=== PATIENT | female | born 1955 | race Caucasian/White ===

== ENCOUNTER 2019-11-30 06:38 | Day surgery (SDC) | payer MEDICAID ==
[~2019-11-30] VITALS: Ht 167.6 cm; Wt 108.9 kg
[2019-11-30] MEDS ORDERED: IOHEXOL-350 100 ML VIAL IV ONE (07:16)
[2019-11-30] MEDS ORDERED: NITROGLYCERIN 0.4 MG/TAB BOTTLE ONE (07:30)
[2019-11-30] MEDS ORDERED: NITROGLYCERIN 0.4 MG/TAB BOTTLE SL ONE (07:30)
[2019-11-30] MEDS ORDERED: METOPROLOL TARTRATE INJ 5 MG/5 ML AMPUL ONE ×2 (07:31→08:31)
[2019-11-30] MEDS: METOPROLOL TARTRATE INJ 5 MG/5 ML AMPUL IVP PRN ×6 (07:35→08:41)
--- NOTE | 2019-11-30 08:00 | NUR ---
RN NOTES: CTA procedure: Patient received from [facility], via gurney, patient is awake and verbally responsive. Denies any pain or discomfort at this time. CTA procedure explained to patient and verbalizes understanding, patient signed consent. IV g18 inserted at left AC.
--- NOTE | 2019-11-30 08:02 | NUR ---
RN NOTES: POST CTA procedure: Patient able to tolerate procedure, vital signs remains stable. Denies pain or discomfort at this time.
[2019-11-30 08:41] VITALS: BP 133/76
--- NOTE | 2019-11-30 09:01 | NUR ---
RN NOTES: Patient transferred back to [facility] transported by ambulance in stable condition.
== END 2019-11-30 08:54 | disposition home or self-care (01) ==
LOC: CT 06:38
PROVIDERS: ATTEND Internal Medicine Interventional Cardiology
DX: I50.9 Heart failure, unspecified (principal); I25.10 Atherosclerotic heart disease of native coronary artery without angina pectoris; J90 Pleural effusion, not elsewhere classified; J98.11 Atelectasis; M47.814 Spondylosis without myelopathy or radiculopathy, thoracic region
CPT/HCPCS: 75574; J3490 ×2; Q9967

== ENCOUNTER 2019-12-02 06:13 | Day surgery (SDC) | payer MEDICAID ==
[2019-12-02] VITALS (7 sets, daily range): BP systolic 133–154; BP diastolic 51–92
[~2019-12-02] VITALS: Ht 167.6 cm; Wt 99.8 kg
[2019-12-02] MEDS ORDERED: IV NS 0.9% 500 ML IV ONE (06:27)
[2019-12-02] MEDS ORDERED: IV SET PRIMARY PUMP SET 1 EA INFUS.SET MC ONE (06:28)
[2019-12-02] MEDS ORDERED: HEPARIN SODIUM, PORCINE 1,000 UNIT/ML VIAL ONE ×2 (06:28→07:23)
[2019-12-02] MEDS ORDERED: VERAPAMIL HCL IV 5 MG/2 ML VIAL ONE (06:28)
[2019-12-02] MEDS ORDERED: IODIXANOL 150 ML IV ONE (06:28)
[2019-12-02] MEDS ORDERED: LIDOCAINE HCL/PF 1% 30 ML SDV ONE (06:28)
[2019-12-02] MEDS ORDERED: NITROGLYCERIN ICAR 1,000 MCG/10 ML VIAL ICAR ONE (06:29)
[2019-12-02] MEDS ORDERED: FENTANYL PF 100MCG/2ML AMPUL ONE (07:15)
[2019-12-02] MEDS ORDERED: MIDAZOLAM HCL 2 MG/2ML VIAL ONE (07:15)
[2019-12-02] MEDS ORDERED: IODIXANOL 320MG/ML 0 ML IV ONE (07:50)
--- NOTE | 2019-12-02 08:33 | NUR ---
RN NOTES RECEIVED PATIENT VIA GURNEY, PATIENT ALERT AND ORIENTEDX4, ABLLE TO MAKE NEEDS KNOWN. ON ROOM AIR, BREATHING UNLABORED. ATTACHED TO THE MONITOR, HR ON THE 70s SINUS RHYTHM ON THE MONITOR. NO COMPLAINTS OF PAIN AT THIS TIME, PATIENT IS ASKING FOR FOOD AND WATER. IV ACCESS ON THE THE LEFT AC, SL. TR BAND ON THE R FOREARM. PATIENT ORIENTED TO UNIT AND CALL LIGHT. SAFETY MEASURES PUT IN PLACE. CALL LIGHT WITHIN REACH. WILL CONTINUE TO MONITOR PATIENT ACCORDINGLY
[2019-12-02] MEDS ORDERED: MORP2VIA IV (10:05)
[2019-12-02] MEDS ORDERED: INSU100V3 SQ (10:05)
[2019-12-02] MEDS ORDERED: LOSA25TA27 PO (10:05)
[2019-12-02] MEDS ORDERED: HYDR-4076 PO (10:05)
[2019-12-02] MEDS ORDERED: ATOR40TA PO (10:05)
[2019-12-02] MEDS ORDERED: FURO10VI IVP (10:05)
[2019-12-02] MEDS ORDERED: ACET-868 PO (10:05)
[2019-12-02] MEDS ORDERED: CARV12.52 PO (10:05)
[2019-12-02] MEDS ORDERED: ASPI-1169 PO (10:05)
[2019-12-02] MEDS ORDERED: BLOO-668 IN (10:05)
[2019-12-02] MEDS ORDERED: DOCU-270 PO (10:05)
[2019-12-02] MEDS ORDERED: ONDA4VIA52 IV (10:05)
[2019-12-02] MEDS ORDERED: ENOX40DI SQ (10:05)
[2019-12-02] MEDS ORDERED: MAGN400O6 PO (10:05)
[2019-12-02] MEDS ORDERED: SPIR25TA6 PO (10:05)
[2019-12-02] MEDS ORDERED: TEMA15CA5 PO (10:05)
[2019-12-02] MEDS ORDERED: PANT40VI IV (10:05)
[2019-12-02] MEDS ORDERED: DEXT50DI5 IV (10:06)
--- NOTE | 2019-12-02 12:00 | NUR ---
ICU/RN PT TRANSFERRED TO [facility]IT IN STABLE CONDITION.V/S STABLE ,AFEBRILE,NO PAIN REPORTED AT THIS TIME.PT EATS 100% FRO HER LUNCH TRAY.TR BAND STILL ON THE RIGHT WRIST AIR REMOVED NO S/S OF BLEEDING NOTED.REPORT GIVEN TO DONALDO.
--- NOTE | 2019-12-02 12:38 | NUR ---
[facility] RN NOTE RECEIVED PATIENT FROM ICU L ALERT ORIENTED X4 ON RA NO SOB NOTED AT THIS TIME , ON TELE MONITOR ORDERED M SR WITH PVC HR 65 , RT WRIST WITH TR BAND ICU NURSE DEFATTED BALLOON , NO BLEEDING NOTED AT THIS TIME BED IN LOCKED AND LOWEST POSITION , PLAN OF CARE DISCUSSED WITH PATIENT
[2019-12-02] MEDS ORDERED: INSULIN REGULAR, HUMAN 100 UNIT/ML 3 ML VIAL SQ PRN (13:00)
[2019-12-02] MEDS ORDERED: *INSULIN REGULAR(HUMULIN R)HUM 100 UNIT/ML VIAL SQ PRN (13:00)
[2019-12-02] MEDS ORDERED: DEXTROSE 50%-WATER 50 ML DISP.SYRIN IV PRN (13:00)
--- NOTE | 2019-12-02 14:25 | NUR ---
[facility] RN notes Patient in bed, not in acute distress. TR band removed and applied pressure dressing. No bleeding noted at this time. Will cont to monitor
--- NOTE | 2019-12-02 15:43 | NUR ---
reinsurance claims analyst notes Report given to LAZARO Hampton at [facility]. Patient made aware that ambulance will be picking her up at [phone] [facility]
[2019-12-02] MEDS ORDERED: BLOOD SUGAR DIAGNOSTIC 1 EACH STRIP VI SCH (17:30)
--- NOTE | 2019-12-02 18:20 | NUR ---
marine underwriter notes Patient in bed, not in acute distress. Ate 75% of her dinner. No s/s of hypo/hyperglycemia noted. Denies any pain or discomfort. All needs attended. VS stable. Will endorse to warehouse worker 2nd shift
--- NOTE | 2019-12-02 19:05 | NUR ---
TELE/RN OPENING NOTES: RECEIVED PT. A/OX3. IN STABLE CONDITION. VERBALLY RESPONSIVE AND ABLE TO MAKE NEEDS KNOWN. NO SOB NOTED. NO S/S OF DISTRESS, ON ROOM AIR AND SATURATING WELL. SKIN INTACT. TR BAND REMOVED. TAGIDERM DRESSING IN PLACE. NO S/S OF BLEEDING. DENIES PAIN AT THIS TIME. IV SITE PRESENT ON THE LEFT AC #20G. ALL REPORTS GIVEN TO LAZARO WOODRUFF FROM [facility]. AWAITING FOR DISCHARGE AND AMBULANCE TO ARRIVE. CALL LIGHT WITHIN REACH. WILL CONTINUE TO MONITOR ACCORDINGLY.
--- NOTE | 2019-12-02 20:30 | NUR ---
TELE/PROFESSOR OF [employer] NOTES: AMBULNZ ARRIVED. ALL CONSENTS SIGNED. REPORT GIVEN TO RANJAN WILLIS AT [facility]. PT. IS STABLE, NO SOB NOTED. NO S/S OF DISTRESS. ON ROOM AIR. SATURATING 94%. VS STABLE. WITH IV LINE LEFT AC #20G INTACT AND IN PLACE SINCE PT IS GOING TO [facility]. PT LEFT THE UNIT AT 2030 IN STABLE CONDITION VIA GURNEY.
--- NOTE | 2019-12-03 09:22 | NUR ---
INFORMATION SENT:FACESHEET,SURGERY POST OPERATIVE,24 HOURS REPORT,DC PLANNING. [phone] FAX SENT BY DAQUAN
== END 2019-12-02 21:45 | disposition short-term general hospital (02) ==
LOC: CATHLAB 06:13 → UNDOADMIN 09:16 → ICU 09:16 → TELE1 11:56 → TELE-TD 12:12 → TELE1 15:41 → CATHLAB 21:45 → UNDODISIN 21:45
PROVIDERS: ATTEND Internal Medicine Interventional Cardiology
DX: R07.9 Chest pain, unspecified (principal); I42.9 Cardiomyopathy, unspecified; I50.21 Acute systolic (congestive) heart failure; I25.10 Atherosclerotic heart disease of native coronary artery without angina pectoris
CPT/HCPCS: 82962 ×2; 93458; 93463; 99152; C1887; J1644 ×3; J1815 ×2; J2250; J3010; J3490 ×2; J7040; Q9967; G0378; G0500

== ENCOUNTER 2023-10-03 14:14 | Inpatient (IN) | payer MEDICAID, OTHER ==
[~2023-10-03] VITALS: Ht 170.2 cm; Wt 124.7 kg
[~2023-10-03 14:14] MED LIST: ACET-868 PO; ASPI-1169 PO; ATOR40TA PO; BLOO-668 IN; CARV12.52 PO; DEXT50DI5 IV; DOCU-270 PO; ENOX40DI SQ; FURO10VI IVP; HYDR-4076 PO; INSU100V3 SQ; LOSA25TA27 PO; MAGN400O6 PO; MORP2VIA IV; ONDA4VIA52 IV; PANT40VI IV; SPIR25TA6 PO; TEMA15CA5 PO
[2023-10-03 15:21] LABS: BASOPHILS # (AUTO) 0.1 K/uL (0.0-0.2); EOSINOPHILS # (AUTO) 0.2 K/uL (0.0-0.7); EOSINOPHILS % (AUTO) 1.5 % (0.0-6.0); HEMATOCRIT 46 % (33-45); HEMOGLOBIN 15.2 g/dL (11.5-14.8); LYMPHOCYTES # (AUTO) 2.7 K/uL (0.8-4.8); LYMPHOCYTES % (AUTO) 27.2 % (20.0-44.0); MEAN CORPUSCULAR HEMOGLOBIN 30 PG (26.0-33.0); MEAN CORPUSCULAR HGB CONC 33 g/dl (31.0-36.0); MEAN CORPUSCULAR VOLUME 89 fL (82-100); MONOCYTES # (AUTO) 0.6 K/uL (0.1-1.30); MONOCYTES % (AUTO) 5.7 % (2.0-12.0); NEUTROPHILS # (AUTO) 6.5 K/uL (1.8-8.9); NEUTROPHILS % (AUTO) 64.6 % (43.0-81.0); PLATELET COUNT (AUTO) 222 K/uL (150-450); RED BLOOD CELL COUNT(AUTO) 5.15 MIL/uL (4.0-5.2); RED CELL DISTRIBUTION WIDTH 15.1 % (11.5-15.0)
[2023-10-03 15:41] LABS: CALCIUM, SERUM 9.5 mg/dL (8.5-10.1); CARBON DIOXIDE 23 mmol/L (21-32); CHLORIDE 103 mmol/L (98-107); GLUCOSE 149 mg/dL (74-106); SODIUM SERUM 139 mmol/L (136-145); UREA NITROGEN, BLOOD 27 mg/dL (7-18)
[2023-10-03 15:53] LABS: NT-PRO BNP 1883 pg/mL (0-125)
[2023-10-03] MEDS ORDERED: ASPI-1420 PO (16:05)
[2023-10-03] MEDS ORDERED: FURO-144 PO (16:05)
[2023-10-03] MEDS ORDERED: ENOXAPARIN SODIUM 60 MG/0.6 ML DISP.SYRIN SQ ONE (16:13)
[2023-10-03] MEDS: ENOXAPARIN SODIUM 60 MG/0.6 ML DISP.SYRIN SQ ONE (16:14)
[2023-10-03] MEDS ORDERED: ACETAMINOPHEN 325 MG TABLET PO PRN (19:00)
[2023-10-03] MEDS ORDERED: hydrALAZINE HCL IV 20 MG VIAL IV PRN (19:00)
[2023-10-03 20:30] VITALS: BP 138/97; TEMP 97.5; O2SAT 93
[2023-10-03 21:00] VITALS: BP 138/97; TEMP 97.5; O2SAT 93
[2023-10-03] MEDS: ATORVASTATIN 40 MG TABLET PO SCH (21:06)
[2023-10-04] VITALS: BP 127/79; TEMP 97.8; O2SAT 97
[2023-10-04 04:00] VITALS: BP 129/78; TEMP 97.5; O2SAT 97
[2023-10-04 04:52] VITALS: BP 129/78; TEMP 97.5; O2SAT 97
[2023-10-04 06:51] LABS: BASOPHILS % (AUTO) 0.4 % (0.0-2.0); EOSINOPHILS # (AUTO) 0.1 K/uL (0.0-0.7); HEMATOCRIT 45 % (33-45); HEMOGLOBIN 14.9 g/dL (11.5-14.8); LYMPHOCYTES # (AUTO) 2.1 K/uL (0.8-4.8); LYMPHOCYTES % (AUTO) 31.4 % (20.0-44.0); MEAN CORPUSCULAR HEMOGLOBIN 30 PG (26.0-33.0); MEAN CORPUSCULAR HGB CONC 34 g/dl (31.0-36.0); MEAN CORPUSCULAR VOLUME 88 fL (82-100); MONOCYTES # (AUTO) 0.6 K/uL (0.1-1.30); MONOCYTES % (AUTO) 8.3 % (2.0-12.0); NEUTROPHILS % (AUTO) 57.9 % (43.0-81.0); PLATELET COUNT (AUTO) 217 K/uL (150-450); RED BLOOD CELL COUNT(AUTO) 5.05 MIL/uL (4.0-5.2); RED CELL DISTRIBUTION WIDTH 15.3 % (11.5-15.0); WHITE BLOOD COUNT (AUTO) 6.8 K/uL (4.3-11.0)
[2023-10-04 07:48] LABS: ALBUMIN 3.2 g/dL (3.4-5.0); BILIRUBIN,TOTAL 0.6 mg/dL (0.2-1.0); CALCIUM, SERUM 8.8 mg/dL (8.5-10.1); CREATININE 0.9 mg/dL (0.6-1.3); PHOSPHORUS 3.6 mg/dL (2.5-4.9); POTASSIUM 4.2 mmol/L (3.5-5.1); TOTAL PROTEIN, SERUM 7.1 g/dL (6.4-8.2)
[2023-10-04 08:00] VITALS: BP 117/86; TEMP 98.4; O2SAT 99
[2023-10-04] MEDS: ASPIRIN EC 81 MG TABLET.DR PO SCH (08:21)
[2023-10-04] MEDS: LOSARTAN POTASSIUM 25 MG TABLET PO SCH (08:21)
[2023-10-04] MEDS: SPIRONOLACTONE 25 MG TABLET PO SCH (08:21)
[2023-10-04] MEDS: FUROSEMIDE 40 MG TABLET PO SCH (08:21)
[2023-10-04] MEDS: CARVEDILOL 12.5 MG TABLET PO SCH (08:22)
[2023-10-04] MEDS: HEPARIN SODIUM, PORCINE 5000 UNITS/1 ML VIAL SQ SCH (08:23)
[2023-10-04 10:44] LABS: THYROID STIMULATING HORMONE 0.994 uIU/mL (0.358-3.74)
[2023-10-04 16:00] VITALS: BP 118/78; TEMP 98.8; O2SAT 98
[2023-10-04 20:00] VITALS: BP 113/66; TEMP 97.7; O2SAT 92
[2023-10-05] VITALS: BP 113/67; TEMP 97.7; O2SAT 97
[2023-10-05 05:00] VITALS: BP 105/61; TEMP 97.8; O2SAT 98
[2023-10-05 08:00] VITALS: BP 125/85; TEMP 97.7; O2SAT 93
[2023-10-05] MEDS: BLOOD SUGAR DIAGNOSTIC 1 EACH STRIP IN SCH (08:30)
[2023-10-05] MEDS ORDERED: DEXTROSE 50%-WATER 50 ML DISP.SYRIN IV PRN (08:30)
[2023-10-05] MEDS: VALSARTAN 80 MG TABLET PO SCH (09:00)
[2023-10-05] MEDS ORDERED: CT SWABBABLE VALVE TRANS SET 1 EA INFUS.SET MC ONE (10:24)
[2023-10-05] MEDS ORDERED: IOHEXOL-350 100 ML VIAL IV ONE (10:24)
[2023-10-05] MEDS ORDERED: NITROGLYCERIN 0.4 MG/TAB BOTTLE ONE (10:24)
[2023-10-05] MEDS ORDERED: METOPROLOL TARTRATE INJ 5 MG/5 ML AMPUL ONE (10:24)
[2023-10-05] MEDS ORDERED: IV NS 0.9% 250 ML IV ONE (10:24)
[2023-10-05] MEDS: METOPROLOL TARTRATE INJ 5 MG/5 ML AMPUL IVP PRN (10:30)
[2023-10-05] MEDS: NITROGLYCERIN 0.4 MG/TAB BOTTLE SL ONE (10:40)
[2023-10-05] MEDS: INSULIN REGULAR, HUMAN 100 UNIT/ML 3 ML VIAL SQ PRN (11:34)
[2023-10-05 12:00] VITALS: BP 121/82; TEMP 98.1; O2SAT 97
[2023-10-05 16:00] VITALS: BP 115/58; TEMP 98.4; O2SAT 98
[2023-10-05 20:00] VITALS: BP 128/74; TEMP 98.6; O2SAT 94
[2023-10-06] VITALS (7 sets, daily range): BP systolic 114–141; BP diastolic 71–95; TEMP 97.5–98.5; O2SAT 93–97
[2023-10-06 06:27] LABS: BASOPHILS % (AUTO) 0.6 % (0.0-2.0); EOSINOPHILS # (AUTO) 0.2 K/uL (0.0-0.7); EOSINOPHILS % (AUTO) 2.5 % (0.0-6.0); HEMATOCRIT 44 % (33-45); HEMOGLOBIN 14.8 g/dL (11.5-14.8); LYMPHOCYTES # (AUTO) 2.4 K/uL (0.8-4.8); LYMPHOCYTES % (AUTO) 36.2 % (20.0-44.0); MEAN CORPUSCULAR HEMOGLOBIN 30 PG (26.0-33.0); MEAN CORPUSCULAR HGB CONC 34 g/dl (31.0-36.0); MEAN CORPUSCULAR VOLUME 89 fL (82-100); MONOCYTES # (AUTO) 0.5 K/uL (0.1-1.30); MONOCYTES % (AUTO) 7.7 % (2.0-12.0); NEUTROPHILS # (AUTO) 3.4 K/uL (1.8-8.9); PLATELET COUNT (AUTO) 210 K/uL (150-450); RED BLOOD CELL COUNT(AUTO) 4.98 MIL/uL (4.0-5.2); RED CELL DISTRIBUTION WIDTH 15.1 % (11.5-15.0); WHITE BLOOD COUNT (AUTO) 6.5 K/uL (4.3-11.0)
[2023-10-06 06:43] LABS: CALCIUM, SERUM 9.2 mg/dL (8.5-10.1); CREATININE 1.1 mg/dL (0.6-1.3); MAGNESIUM 1.9 mg/dL (1.8-2.4); PHOSPHORUS 3.6 mg/dL (2.5-4.9); POTASSIUM 4.2 mmol/L (3.5-5.1)
[2023-10-06] MEDS: SPIRONOLACTONE 25 MG TABLET PO SCH (09:11)
[2023-10-07] VITALS (8 sets, daily range): BP systolic 114–142; BP diastolic 75–88; TEMP 97.5–97.8; O2SAT 93–96
[2023-10-08] VITALS (11 sets, daily range): BP systolic 104–142; BP diastolic 64–101; TEMP 96.4–99; O2SAT 94–97
[2023-10-08] MEDS ORDERED: ANESTHESIA TRAY IN PYXIS 1 EA TRAY MC ONE (06:49)
[2023-10-08] MEDS ORDERED: IOHEXOL 0 ML IV ONE (06:49)
[2023-10-08] MEDS ORDERED: LIDOCAINE HCL/MPF 1% 30 ML VIAL IJ ONE (06:49)
[2023-10-08] MEDS ORDERED: FENTANYL PF 250MCG/5ML AMPUL ONE (07:20)
[2023-10-08 07:31] LABS: INR 0.97 (0.91-1.10); PARTIAL THROMBOPLASTIN TIME 30.7 SEC (24.3-34.3); PROTHROMBIN TIME 10.3 SECS (9.2-11.1)
[2023-10-08 07:34] LABS: BASOPHILS # (AUTO) 0.1 K/uL (0.0-0.2); BASOPHILS % (AUTO) 0.6 % (0.0-2.0); EOSINOPHILS # (AUTO) 0.2 K/uL (0.0-0.7); EOSINOPHILS % (AUTO) 2.4 % (0.0-6.0); HEMATOCRIT 48 % (33-45); HEMOGLOBIN 16.4 g/dL (11.5-14.8); LYMPHOCYTES # (AUTO) 2.9 K/uL (0.8-4.8); LYMPHOCYTES % (AUTO) 35.5 % (20.0-44.0); MEAN CORPUSCULAR HEMOGLOBIN 30 PG (26.0-33.0); MEAN CORPUSCULAR HGB CONC 34 g/dl (31.0-36.0); MEAN CORPUSCULAR VOLUME 88 fL (82-100); MONOCYTES # (AUTO) 0.6 K/uL (0.1-1.30); MONOCYTES % (AUTO) 7.5 % (2.0-12.0); NEUTROPHILS # (AUTO) 4.4 K/uL (1.8-8.9); PLATELET COUNT (AUTO) 235 K/uL (150-450); RED BLOOD CELL COUNT(AUTO) 5.48 MIL/uL (4.0-5.2); RED CELL DISTRIBUTION WIDTH 15.2 % (11.5-15.0); WHITE BLOOD COUNT (AUTO) 8.2 K/uL (4.3-11.0)
[2023-10-08 07:35] LABS: CALCIUM, SERUM 9.5 mg/dL (8.5-10.1); CREATININE 1.1 mg/dL (0.6-1.3)
[2023-10-08] MEDS ORDERED: FENTANYL PF 100MCG/2ML AMPUL ONE (09:07)
[2023-10-08] MEDS: MORPHINE SULFATE INJ 2 MG/ML DISP.SYRIN IV PRN (11:28)
[2023-10-08] MEDS: ONDANSETRON HCL/PF 4 MG/2 ML VIAL IVP PRN (18:52)
[2023-10-08] MEDS ORDERED: MAG HYDROX/AL HYDROX/SIMETH 30 ML UDC PO PRN (19:00)
[2023-10-09 07:30] VITALS: BP 132/98; TEMP 97.3; O2SAT 97
[2023-10-09 08:29] VITALS: BP 132/98
== END 2023-10-09 16:49 | disposition home or self-care (01) | DRG 276 ==
LOC: ER 14:14 → TELE 19:43 → MED 10-08 11:20
PROVIDERS: ADMIT Internal Medicine; ATTEND Internal Medicine
PROC: 0JH608Z Insertion of Defibrillator Generator into Chest Subcutaneous Tissue and Fascia, Open Approach (ICD-10-PCS; principal; 2023-10-08)
PROC: 02HK3KZ Insertion of Defibrillator Lead into Right Ventricle, Percutaneous Approach (ICD-10-PCS; 2023-10-08)
DX: I11.0 Hypertensive heart disease with heart failure (principal); I21.4 Non-ST elevation (NSTEMI) myocardial infarction; I50.43 Acute on chronic combined systolic (congestive) and diastolic (congestive) heart failure; Z68.41 Body mass index [BMI] 40.0-44.9, adult; I42.0 Dilated cardiomyopathy; I25.10 Atherosclerotic heart disease of native coronary artery without angina pectoris; E66.9 Obesity, unspecified; E78.5 Hyperlipidemia, unspecified; Z71.3 Dietary counseling and surveillance; Z88.1 Allergy status to other antibiotic agents; R73.9 Hyperglycemia, unspecified
CPT/HCPCS: 36415; 71045-TC; 74018; 75574; 80048-TC; 80053-TC; 80061-TC; 82962-TC; 83605-TC; 83735-TC; 83880; 84100-TC; 84439-TC; 84443-TC; 84484-TC; 85025-TC; 85378-TC; 85610-TC; 85730-TC; 86850-TC; 93307-TC; C1722; G0378; J0690; J1644; J1650; J1815; J2270; J2405; J2704; J3010; J3490; J7050; Q9967